=== PATIENT | female | born 1950 | race Caucasian/White ===

== ENCOUNTER 2018-09-01 07:01 | Day surgery (SDC) | payer OTHER ==
[2018-08-29 18:56] VITALS: BMI 29.2
[2018-09-01] MEDS ORDERED: LIDOCAINE HCL 1%, 10 MG/ML (20ML VIAL) ONE ×2 (08:25→10:28)
[2018-09-01] MEDS ORDERED: ISOSULFAN BLUE 10 MG/ML VIAL SQ ONE (08:26)
[2018-09-01] MEDS ORDERED: PROPOFOL 20 ML ONE (10:57)
[2018-09-01] MEDS ORDERED: MIDAZOLAM HCL 2 MG/2 ML SINGLE DOSE VIAL ONE (10:57)
[2018-09-01] MEDS ORDERED: LIDOCAINE HCL/PF 2% SDV 5ML VIAL ONE (11:07)
[2018-09-01] MEDS ORDERED: SODIUM CHLORIDE 0.9% P/F 10 ML VIAL IJ ONE ×2 (11:12→11:23)
[2018-09-01] MEDS ORDERED: ceFAZolin SODIUM 1 GM VIAL ONE (11:12)
[2018-09-01] MEDS ORDERED: ceFAZolin SODIUM 1 GM VIAL IVPB ONE (11:13)
[2018-09-01] MEDS ORDERED: DEXAMETHASONE SOD PHOSPHATE 4 MG/1 ML VIAL ONE (11:15)
[2018-09-01] MEDS ORDERED: ePHEDrine SULFATE 50 MG/1 ML AMPULE ONE (11:22)
[2018-09-01] MEDS ORDERED: LIDOCAINE HCL 1%, 10 MG/ML (20ML VIAL) INF ONE (11:30)
[2018-09-01] MEDS ORDERED: KETOROLAC TROMETHAMINE 30 MG/1 ML VIAL ONE (12:07)
[2018-09-01] MEDS ORDERED: oxyCODONE HCL 5 MG TABLET PO PRN (12:38)
[2018-09-01] MEDS ORDERED: PROMETHAZINE HCL 25 MG/1 ML VIAL IVPUSH PRN (12:38)
[2018-09-01] MEDS ORDERED: ONDANSETRON 4 MG/2 ML VIAL IVPUSH PRN (12:38)
[2018-09-01] MEDS ORDERED: LACTATED RINGERS SOLUTION 1,000 ML IV SCH (12:45)
--- NOTE | 2018-09-01 12:46 | HP ---
History & Physical Update - History History: No Change - Physical Physical: No Change - Assessment Assessment: No Change - Plan Plan: No Change
[2018-09-01 14:42] VITALS: BP 140/84; PULSE 118; TEMP 98.3
--- NOTE | 2018-09-01 21:57 | OP ---
DATE OF OPERATION: 09/01/2018 PREOPERATIVE DIAGNOSIS: Left breast cancer. POSTOPERATIVE DIAGNOSIS: Left breast cancer. PROCEDURE: Left breast ultrasound-guided, wire-localized lumpectomy and sentinel node lymph node biopsy. SURGEON: Stacie Serrano MD ANESTHESIA: General. ESTIMATED BLOOD LOSS: Minimal. COMPLICATIONS: None. This was a sterile procedure. INDICATION FOR PROCEDURE: Patient had a mammogram that noted an area of clustering microcalcifications in the upper outer left breast. This was followed by an ultrasound that noted a hypoechoic area with calcifications in the left breast 2 o'clock location, 12 cm from the nipple. I did a left breast ultrasound-guided needle biopsy, and pathology showed an invasive carcinoma that is ER/ID positive. My recommendation was a lumpectomy and a sentinel node biopsy. The procedure was discussed with her; all of her questions answered. PROCEDURE IN DETAIL: Patient was brought to [facility] and taken into nuclear medicine where I injected technetium labeled sulfur colloid as an intradermal injection in the left breast 2 o'clock periareolar area. She was then brought up to the operating room, and after induction of general anesthesia and IV antibiotics, an intraoperative ultrasound was performed of the left 2 o'clock location, 12 cm from the nipple and the lesion in question identified. Using Betadine, a Kopans wire was used to localize this area by me in the operating room. Once this was localized with a wire, 5 mL of isosulfan blue were injected by me into the left subareolar plexus. The breast was then massaged for 5 minutes. The left breast and axilla then prepped and draped in the usual sterile fashion. A 4-cm incision was made in the left axilla, carried down through the clavipectoral fascia to identify 4 sentinel lymph nodes that were blue and hot in the level I axilla, and there was one more deeper in the level II axilla, that was also blue and hot. These were sent to Pathology for permanent section. Hemostasis was assured with electrocautery. There was no other blue dye radioactivity or pathologic-feeling lymph nodes in the left axilla. Therefore, once this was completed, the left lumpectomy was performed. A radial incision was made in the outer left breast, and a wire was used as a guide to get down to the area of interest. This was excised en bloc and tagged with a long stitch lateral, short stitch superior. I did an ultrasound of the lumpectomy and appeared to have adequate margins. Therefore, this was then sent to Pathology for permanent section. Hemostasis was assured with electrocautery. The parenchyma were approximated with interrupted 2-0 Vicryl, skin approximated with interrupted 3-0 Vicryl and 4-0 Biosyn. A sterile dressing with Tegaderm and 4 x 4's applied. The axillary incision was also closed in routine fashion with interrupted 3-0 Vicryl and running 4-0 Biosyn. A sterile dressing with Tegaderm and 4 x 4's applied. She tolerated the procedure well, was extubated on the operating room table. A mammary binder was applied, and she was taken to Recovery in good condition. Huy [id number]
--- NOTE | 2018-09-05 15:45 | PATH ---
Surgical Pathology Report Patient Name: MISTY AUSTIN [facility]. Rec. #: [id number] /Age/Gender: 1950 (Age: 68) / F Account: [id number] Location: [facility] SURGICAL Taken: 09/01/2018 Received: 09/01/2018 Reported: 09/05/2018 Physicians: Stacie Serrano M.D. Specimen(s) Received A: LEFT AXILLARY SENTINEL LYMPH NODE #1 BLUE AND HOT B: LEFT AXILLARY SENTINEL LYMPH NODE #2 HOT AND BLUE C: LEFT AXILLARY SENTINEL LYMPH NODE #3 HOT AND BLUE D: LEFT AXILLARY SENTINEL LYMPH NODE #4 HOT AND BLUE E: LEFT AXILLARY SENTINEL LYMPH NODE #5 HOT AND BLUE F: LEFT AXILLARY NON SENTINEL LYMPH NODE G: LEFT BREAST MASS Clinical History Left breast cancer Final Diagnosis A. LEFT AXILLARY SENTINEL LYMPH NODE #1, BLUE AND HOT, EXCISION: TWO LYMPH NODES, NEGATIVE FOR METASTATIC CARCINOMA (0/2). B. LEFT AXILLARY SENTINEL LYMPH NODE #2, HOT AND BLUE, EXCISION: ONE LYMPH NODE, NEGATIVE FOR METASTATIC CARCINOMA (0/1). C. LEFT AXILLARY SENTINEL LYMPH NODE #3, HOT AND BLUE, EXCISION: ONE LYMPH NODE, NEGATIVE FOR METASTATIC CARCINOMA (0/1). D. LEFT AXILLARY SENTINEL LYMPH NODE #4, HOT AND BLUE, EXCISION: ONE LYMPH NODE, NEGATIVE FOR METASTATIC CARCINOMA (0/1). E. LEFT AXILLARY SENTINEL LYMPH NODE #5, HOT AND BLUE, EXCISION: ONE LYMPH NODE, NEGATIVE FOR METASTATIC CARCINOMA (0/1). F. LEFT AXILLARY NON SENTINEL LYMPH NODE, EXCISION: BENIGN FIBROADIPOSE TISSUE. NO LYMPH NODES IDENTIFIED. G. LEFT BREAST, LUMPECTOMY: INVASIVE MICROPAPILLARY CARCINOMA WITH MUCINOUS FEATURE, POORLY DIFFERENTIATED (TUBULE SCORE: 3/3, NUCLEAR GRADE 3/3, MITOTIC SCORE: 2/3, TOTAL SCORE 8/9, NOEMI GRADE 3), MEASURING 1.2 CM IN GREATEST DIMENSION, MICROSCOPICALLY. SURGICAL MARGINS ARE UNINVOLVED BY INVASIVE CARCINOMA. THE CARCINOMA IS AT 6 MM FROM THE CLOSEST MARGIN (INFERIOR MARGIN). DUCTAL CARCINOMA IN SITU (DCIS) PRESENT, MODERATE TO HIGH NUCLEAR GRADE, SOLID AND MICROPAPILLARY TYPE, WITH NECROSIS AND ASSOCIATED CALCIFICATIONS. DCIS TO THE CLOSEST MARGIN (INFERIOR MARGIN) IS 2 MM. LYMPHOVASCULAR INVASION NOT IDENTIFIED. REACTIVE CHANGES AT PRIOR BIOPSY SITE IDENTIFIED. PATHOLOGIC STAGE (pTNM): pT1C, pN0 SEE INVASIVE CARCINOMA CASE SUMMARY BELOW. Comments Breast Invasive Carcinoma: Surgical Pathology Case Summary (Based on AJCC TNM 8 th edition) Procedure _x_ Excision (less than total mastectomy) Specimen Laterality _x_ Left Tumor Size _x_ Greatest dimension of largest invasive focus >1 mm (specify exact measurement) (millimeters): 12mm Histologic Type _x_ Invasive micropapillary carcinoma with mucinous feature Histologic Grade (Noemi Histologic Score) Glandular (Acinar)/Tubular Differentiation _x_ Score 3 (<10% of tumor area forming glandular/tubular structures) Nuclear Pleomorphism _x_ Score 3 Mitotic Rate _x_ Score 2 Overall Grade _x_ Grade 3 (scores of 8 or 9) Tumor Focality _x_ Single focus of invasive carcinoma Ductal Carcinoma In Situ (DCIS) _x_ DCIS is present in specimen _x_ Positive for EIC Margins Invasive Carcinoma Margins _x_ Uninvolved by invasive carcinoma Distance from closest margin (millimeters): 6 mm Closest margin: inferior margin DCIS Margins _x_ Uninvolved by DCIS Distance from closest margin (millimeters): 2 mm Closest margin: inferior margin Regional Lymph Nodes Number of Lymph Nodes with Macrometastases (>2 mm): 0 Number of Lymph Nodes with Micrometastases (>0.2 mm to 2 mm and/or >200 cells): 0 Number of Lymph Nodes with Isolated Tumor Cells (=0.2 mm and =200 cells): 0 Number of Lymph Nodes Examined: 6 Number of Marshall Nodes Examined: 6 Treatment Effect _x_ No known presurgical therapy Lymphovascular Invasion _x_ Not identified Pathologic Stage Classification (pTNM, AJCC 8th Edition) Primary Tumor (Invasive Carcinoma) (pT) _x_ pT1c: Tumor >10 mm but =20 mm in greatest dimension Regional Lymph Nodes (pN) Category (pN) _x_ pN0: No regional lymph node metastasis identified or ITCs only Biomarker Studies Results of ER and MD studies performed on this specimen (block#G4) at [facility] are as follows: ER (clone [id number] mouse monoclonal antibody by [employer]): 100% nuclear staining with strong intensity (Positive). MD (clone16 mouse monoclonal antibody by [employer]): 95% nuclear staining with strong intensity (Positive). Results of Her2 (IHC) & Ki-67 studies performed on this specimen (block# G4) at [place], [place] ([id number]) are as follows: Her2 IHC (EP3 from [employer], formerly known as [id number], using Brown Polymer Refine detection kit): Negative (0) Ki67: ~10% (low proliferative index) COMMENT: Immunohistochemical stained slide show DEIDRA stains the cells membranes at the peripheral cells of the tumour clusters, which support the diagnosis of micropapillary carcinoma phenotype. Immunohistochemistry stain DEIDRA performed at [facility], [place], [place] ([id number]) interpreted at [facility]. Positive and negative controls (internal if applicable) show appropriate results. Positive and negative controls (internal if applicable) show appropriate results. Formalin fixation is within, and cold ischemic time exceeds current ASCO/CAP recommendations for ER, MD and Her2 testing. Electronically Signed Elyssa Weber M.D. Gross Description A. Received in formalin labeled "left axillary sentinel lymph node #1," are 2 lymph nodes with attached fat measuring 0.8 and 1.4 cm in greatest dimension. The lymph nodes are bisected and entirely submitted in 2 cassettes as follows: 1-2-one bisected lymph node each. B. Received in formalin labeled "left axillary sentinel node #2," is a 1.0 x 0.7 x 0.5 cm lymph node with attached fat. The specimen is bisected and entirely submitted in one cassette. C. Received in formalin labeled "left axillary sentinel lymph node #3," is a 1.0 x 0.9 x 0.6 cm lymph node with attached fat. The specimen is bisected and entirely submitted in 2 cassettes. D. Received in formalin labeled "left axillary sentinel lymph node #4," is a 0.4 cm in greatest dimension lymph node with attached fat. The specimen is submitted in toto in one cassette. E. Received in formalin labeled "left axillary sentinel lymph node #5," is a 0.6 cm greatest dimension lymph node. The specimen is submitted in toto in one cassette. F. Received in formalin labeled "left axillary non-sentinel lymph node," is a 2.5 x 1.8 x 0.2 cm portion of yellow adipose tissue, possibly containing a lymph node. No definite lymph node is identified. The specimen is submitted in toto in one cassette. G. Received in formalin, labeled "left breast lumpectomy," is a 7.3 x 5.6 x 2.8 cm. hernandez-yellow, irregular, portion of fibroadipose tissue with a needle localization wire present. There is a short suture marking the superior aspect and a long suture marking the lateral aspect, per the surgeon. There is no skin or nipple present. The specimen is inked as follows: Superior blue, inferior green, anterior and lateral red, medial yellow, deep black. The specimen is serially sectioned from anterior to deep. Sectioning reveals a 0.9 x 0.8 x 0.7 cm hernandez, indurated mass focally at 0.6 cm from the inferior margin and 1.0 cm from the superior margin. The mass is 1.2 cm from the lateral margin. [employer] sections are submitted in 10 cassettes as follows: 1-full face section of mass with inferior margin; 2-additional mass with inferior margin; 3-4-mass with superior margin; 5-fibrous tissue surrounding mass with superior and inferior margins; 6-7-lateral margin; 8-medial margin; 9-anterior margin; 10-deep margin. Time to formalin fixation: 2 hours Total formalin fixation time: Approximately 28 hours 09/02/2018 [facility]09/02/2018
== END 2018-09-01 14:45 | disposition home or self-care (01) ==
LOC: JASU-SURG 07:01
PROVIDERS: ATTEND Surgery
PROC: 0HBU0ZZ Excision of Left Breast, Open Approach (ICD-10-PCS; principal; 2018-09-01 10:00)
DX: C50.912 Malignant neoplasm of unspecified site of left female breast (principal)
CPT/HCPCS: 82962; 88305-TC; 88307-TC; 88342-TC; 94760; A9541

== ENCOUNTER 2019-04-27 16:04 | Inpatient (IN) | payer OTHER ==
--- NOTE | 2019-04-27 16:28 | PDOC ---
Rapid Medical Evaluation Chief Complaint: CVA/TIA Time Seen by Provider: 04/27/19 16:20 Medical Evaluation: Allergies Allergy/AdvReac Type Severity Reaction Status Date / Time No Known Allergies Allergy Verified 08/29/18 18:56 04/27/19 16:23 I have performed a brief in-person evaluation of this patient. The patient presents with a chief complaint of: numbness sensation to right side of face, upper extremities and Rt LE since yesterday. H/O uncontrolled HTN and DM. Denies facial drooping. Pertinent physical exam findings: A&O x 3 in NAD. normal facial symmetry. EOMI b /l. 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 5/5 strength to b/l UE. normal sensation to b/l upper extremity. I have ordered the following: nothing The patient will proceed to the ED for further evaluation Discharge Disposition - Diagnosis Numbness - Discharge Dispostion Condition at time of disposition: Stable - Referrals - Patient Instructions - Post Discharge Activity
[2019-04-27 16:30] VITALS: BMI 30.2
[2019-04-27] MEDS: SODIUM CHLORIDE 1,000 ML IV SCH (23:10)
[2019-04-27 23:25] LABS: BASO % 0.3 % (0-2.0); EOS % 2.4 % (0-4.5); HEMOGLOBIN 12.2 GM/dL (10.7-15.3); LYMPH % 29.4 % (8-40); MCH 24.4 pg (25.7-33.7); MCHC 32.1 g/dl (32.0-36.0); MEAN PLT VOLUME 9.5 fl (7.5-11.1); MONO % 9.6 % (3.8-10.2); NEUT % 58.3 % (42.8-82.8); PLATELET COUNT 109 K/MM3 (134-434); RDW 17.8 % (11.6-15.6); WHITE BLOOD COUNT 5.8 K/mm3 (4.0-10.0)
[2019-04-27 23:32] LABS: INR 1.18 (0.83-1.09)
--- NOTE | 2019-04-27 23:43 | PDOC ---
History of Present Illness - General Chief Complaint: CVA/TIA Stated Complaint: RT SIDE NUMBNESS Time Seen by Provider: 04/27/19 16:20 History Source: Patient Exam Limitations: No Limitations - History of Present Illness Initial Comments: 04/27/19 22:46 69 yo F with a hx of HTN, DM, HDL, blindness secondary to glaucoma, asthma, and left breast cancer s/p resection and radiation presents to the emergency department with numbness on the right side of the face, UE, and LE. Per the patient, she had sudden onset of facial weakness with numbness with associative numbness and weakness on her right LE and UE that began yesterday at 3 pm. She did not tell her family of the symptoms until today where she presented to urgent care. The patient has had multiple episodes of hypoglycemia in the past month. Per the patient, she states her symptoms have markedly improved 04/27/19 22:48 tPA Exclusion Checklist 0-3hr - Time Elapsed Date last known well: 04/26/19 Time last known well: 15:00 Elaspsed time: 4 Day(s) and 2 Hour(s) and 58 Minutes - Thrombolytic Therapy Candidate Is the patient eligible for Thrombolytic Therapy?: No - Exclusion Criteria 0-3hr SBP greater than 185 or DBP greater than 110mmHg despite tx: No Recent IC/spinal surgery,head trauma or stroke w/in last 3mo: No Hx of previous IC hemorrhage, IC neoplasm, AVM or aneurysm: No Active internal bleeding: No Blding diathesis(low plt ct, inc PTT,INR>1.7 or use of NOAC): No Symptoms suggest subarachnoid hemorrhage: No CT demonstrates multilobar infarct(>1/3 cerebral hemiphere): No Arterial puncture at noncompressible site in previous 7 days: No Blood glucose concentration less than 50mg/dL (2.7mmol/L): No - Relative Exclusion Criteria 0-3h Life expectancy <1yr/severe co-morbid illness/ASSOCIATE STORE DIRECTOR on admit: No : No Patient/family refused: No Rapid improvement: Yes Stroke severity too mild: Yes Recent acute NM (w/in previous 3 months): No Seizure at onset with postictal residual neuro impairments: No Major surgery or serious trauma w/in previous 14 days: No Recent GI or hemorrhage (w/in previous 21 days): No - Ineligibility reason(s) Reasons No tPA given: See reason(s) noted above NIH Stroke Scale - Last Known Well Date/Time & Onset Date Last Known Well: 04/26/19 Time Last Known Well: 15:00 - Initial Evaluation Level of consciousness: Alert Ask patient the month and their age: Answers both correctly Ask patient to open & close eyes; make fist and let go: Obeys both correctly Best gaze (horizontal eye movement): Normal (100% blindness bilaterally chronic) Visual field testing: No visual field loss (unable to assess given patient's blindness) Facial paresis (Show teeth/raise eyebrows/close eyes tight): Normal symmetrical movement Motor Function: Left Arm: Normal Motor Function: Right Arm: Normal (extends arm 90 (or 45) degrees for 10 seconds without drift Motor Function: Left Leg: Normal (extends leg 30 degrees for 5 seconds without drift) Motor Function: Right Leg: Normal (extends leg 30 degrees for 5 seconds without drift) Limb Ataxia: No ataxia Sensory(Use pinprick test arms,legs,trunk,face/side to side): Normal Best language (Describe picture, name items, read sentences): No Aphasia Dysarthria (read several words): Mild to moderate slurring of words Extinction and Inattention: No abnormality - Total Score NIH Stroke Scale Score: 1 Past History - Past Medical History Allergies/Adverse Reactions: Allergies Allergy/AdvReac Type Severity Reaction Status Date / Time No Known Allergies Allergy Verified 04/27/19 16:23 Home Medications: Ambulatory Orders Cyanocobalamin [Vitamin B12 -] 1,000 mcg PO DAILY 08/29/18 Multivitamin [Daily Multiple Vitamin] 1 each PO DAILY 08/29/18 metFORMIN HCL [Metformin HCl] 500 mg PO BID 08/29/18 Aspirin 81 mg PO DAILY 04/28/19 Chlorthalidone 25 mg PO DAILY 04/28/19 Linagliptin [Tradjenta] 5 mg PO DAILY 04/28/19 Rosuvastatin Calcium [Crestor] 40 mg PO DAILY 04/28/19 Exemestane [Aromasin] 25 mg PO DAILY 04/29/19 Ezetimibe [Zetia -] 10 mg PO DAILY #30 tablet 04/29/19 Losartan Potassium [Cozaar -] 50 mg PO DAILY tablet 04/29/19 Metoprolol Succinate [Toprol XL -] 100 mg PO DAILY tab.sr.24h 04/29/19 Asthma: Yes COPD: No Diabetes: Yes HTN: Yes Other medical history: blind - Suicide/Smoking/Psychosocial Hx Smoking History: Unknown if ever smoked Hx Alcohol Use: No Drug/Substance Use Hx: No Substance Use Type: None Review of Systems - Review of Systems Able to Perform ROS?: Yes Is the patient limited Croatian proficient: No Constitutional: Yes: Weakness. No: Chills, Diaphoresis, Fever, Night Sweats HEENTM: No: Eye Pain, Ear Pain, Nose Pain, Throat Pain, Mouth Pain Respiratory: No: Cough, Shortness of Breath, Hemoptysis Cardiac (ROS): No: Chest Pain ABD/GI: No: Constipated, Diarrhea, Nausea, Rectal Bleeding, Vomiting, Tarry Stools : No: Burning, Dysuria, Incontinence Musculoskeletal: No: Back Pain Integumentary: No: Bruising, Erythema, Rash Neurological: No: Headache, Tingling, Ataxia Psychiatric: No: Stressors Endocrine: No: Unexplained Weight Gain Hematologic/Lymphatic: No: Anemia *Physical Exam - Vital Signs Last Vital Signs Temp Pulse Resp BP Pulse Ox 98.5 F 70 17 147/75 98 04/27/19 16:26 04/27/19 16:26 04/27/19 16:26 04/27/19 16:26 04/27/19 16:26 - Physical Exam General Appearance: Yes: Nourished, Appropriately Dressed. No: Apparent Distress, Intoxicated HEENT: positive: Symmetrical, TMs Normal, Pharynx Normal, Hearing Grossly Normal. negative: EOMI (chronic bilateral blindness), MIRIAN, Normal Voice ( dysarthric), Pale Conjunctivae, Scleral Icterus (R), Scleral Icterus (L), Pharyngeal Erythema, Tonsillar Exudate, Excessive drooling Neck: positive: Trachea midline, Supple. negative: Tender, Lymphadenopathy (R) , Lymphadenopathy (L), Tender lateral, Tender midline Respiratory/Chest: positive: Lungs Clear, Normal Breath Sounds. negative: Chest Tender, Respiratory Distress, Accessory Muscle Use, Crackles, Rales, Rhonchi, Stridor Cardiovascular: positive: Regular Rhythm, Regular Rate, S1, S2. negative: Systolic Murmur Gastrointestinal/Abdominal: positive: Normal Bowel Sounds, Flat, Soft. negative : Tender, Distended, Guarding, Rebound Lymphatic: negative: Adenopathy Musculoskeletal: positive: Normal Inspection. negative: CVA Tenderness Extremity: positive: Normal Capillary Refill, Normal Inspection, Normal Range of Motion. negative: Tender Integumentary: positive: Normal Color, Dry, Warm Neurologic: positive: Fully Oriented, Alert, Normal Mood/Affect, Normal Response , Motor Strength 5/5. negative: flash designer II-XII NML intact (unable to assess EOMI and vision), Numbness, Sensory Deficit ED Treatment Course - LABORATORY CBC & Chemistry Diagram: 04/29/19 06:00 04/29/19 06:00 - RADIOLOGY Radiology Studies Ordered: Category Date Time Status CHEST PA & LAT [RAD] Stat Radiology 04/27/19 20:37 Ordered Medical Decision Making - Medical Decision Making 04/28/19 00:03 69 yo F with a hx of HTN, DM, HDL, blindness secondary to glaucoma, asthma, and left breast cancer s/p resection and radiation presents to the emergency department with numbness on the right side of the face, UE, and LE. Initial vitals: Initial Vital Signs Temp Pulse Resp BP Pulse Ox 98.5 F 70 17 147/75 98 04/27/19 16:26 04/27/19 16:26 04/27/19 16:26 04/27/19 16:26 04/27/19 16:26 Work up: patient presents to the emergency department with improved symptoms of weakness and sensation loss of the right side. Denies hx of CVA. concerns for tia vs cva. will order cva work up. will order ct head and EKG Laboratory Tests 04/27/19 04/27/19 04/27/19 23:00 23:00 23:00 WBC 5.8 RBC 5.00 Hgb 12.2 Hct 38.0 MCV 76.0 L MCH 24.4 L MCHC 32.1 RDW 17.8 H Plt Count 109 L MPV 9.5 Absolute Neuts (auto) 3.4 Neutrophils % 58.3 Lymphocytes % 29.4 Monocytes % 9.6 Eosinophils % 2.4 Basophils % 0.3 Nucleated RBC % 0 PT with INR INR Sodium 141 Potassium 3.9 Chloride 106 Carbon Dioxide 28 Anion Gap 7 L BUN 19.8 H Creatinine 0.9 Est GFR (CKD-EPI)AfAm 74.56 Est GFR (CKD-EPI)NonAf 64.33 Random Glucose 126 H Calcium 8.8 Total Bilirubin 0.5 AST 16 ALT 17 Alkaline Phosphatase 91 Creatine Kinase 50 Troponin I < 0.02 Total Protein 7.8 Albumin 3.6 Triglycerides 118 Cholesterol 131 Total LDL Cholesterol 82 HDL Cholesterol 37 L 04/27/19 23:00 WBC RBC Hgb Hct MCV MCH MCHC RDW Plt Count MPV Absolute Neuts (auto) Neutrophils % Lymphocytes % Monocytes % Eosinophils % Basophils % Nucleated RBC % PT with INR 14.00 H INR 1.18 H Sodium Potassium Chloride Carbon Dioxide Anion Gap BUN Creatinine Est GFR (CKD-EPI)AfAm Est GFR (CKD-EPI)NonAf Random Glucose Calcium Total Bilirubin AST ALT Alkaline Phosphatase Creatine Kinase Troponin I Total Protein Albumin Triglycerides Cholesterol Total LDL Cholesterol HDL Cholesterol no irregular rhythm noted on EKG. CT head shows no acute process. spoke to neurology implementation project coordinator which requests for admission and MRI in the morning. the patient has been pain free throughout ED stay. will admit for cva vs tia. Dispo; Admit *DC/Admit/Observation/Transfer Diagnosis at time of Disposition: Numbness - Referrals - Patient Instructions - Post Discharge Activity
[2019-04-27 23:47] LABS: ALBUMIN 3.6 g/dl (3.4-5.0); BILIRUBIN,TOTAL 0.5 mg/dL (0.2-1); BLOOD UREA NITROGEN 19.8 mg/dL (7-18); CALCIUM 8.8 mg/dL (8.5-10.1); CREATININE 0.9 mg/dL (0.55-1.3); POTASSIUM 3.9 mmol/L (3.5-5.1); TOT PROT 7.8 g/dl (6.4-8.2)
[2019-04-27] MEDS ORDERED: ASPIRIN 81 MG CHEWABLE TABLETS PO ONE (23:50)
--- NOTE | 2019-04-28 00:27 | PDOC ---
Documentation entered by Janki Uriostegui SCRIBE, acting as scribe for Tata Aguilar MD. Tata Aguilar MD: This documentation has been prepared by the Gila mortensen Xhesika, SCRIBE, under my direction and personally reviewed by me in its entirety. I confirm that the documentation accurately reflects all work, treatment, procedures, and medical decision making performed by me. Attending Attestation - Resident Resident Name: Wesley Mcclure - ED Attending Attestation I have performed the following: I have examined & evaluated the patient, The case was reviewed & discussed with the resident, I agree w/resident's findings & plan, Exceptions are as noted - HPI HPI: 04/27/19 21:02 The patient is a 69 year old female with a significant medical history of HTN, DM, HLD, b/l blindness due to glaucoma, asthma, vertigo, L breast cancer who present to the ED with R sided facial numbness with associated RUE and RLE numbness since yesterday. The patient went to urgent care and was advised to come to the ED. The patient denies facial drooping, speech impairment, headache or dizziness. The patient denies chest pain, shortness of breath, headache and dizziness. Denies fever, chills, nausea, vomit, diarrhea and constipation. Denies dysuria, frequency, urgency and hematuria. Allergies: NKA - Physicial Exam PE: 04/28/19 00:22 wnwd 69 yo female who is blind eyes opaque pupils head ncat,no scalp lacerations neck no midline pain lungs cta b/l cvs [id number] abd no rebound ,no guarding skin warm and dry extremities no deformities neuro alert and conversant,motor strength 5/5, b/l, no decreased sensation - Medical Decision Making 04/27/19 23:09 69 yo female has experienced weakness and numbness since yesterday. She is blind in both eyes due to glaucoma. PMH HTN,DM,asthma Today she felt better and went to an urgent care center and she was referred to the ED ROS denies any headache,nausea,vomiting,chest pain,shortness of breath, abdominal pain no gross focal neuro deficits at this time 04/28/19 00:25 ct scan head no acute intracrainal pathology imp TIA pt admitted to hospitalist
[2019-04-28] MEDS ORDERED: ASPIRIN 81 MG CHEWABLE TABLETS ONE (00:43)
--- NOTE | 2019-04-28 00:51 | HP ---
CHIEF COMPLAINT: Right sided numbness PCP: HISTORY OF PRESENT ILLNESS: Ms. Mccollum is a 69 yo female with HTN, HLD, DM, and breast cancer who presents with intermittent R sided paresthesias that began 2 days ago. She denies any history of previous episodes of numbness or stroke. She says the numbness is on her face, and upper and lower extremities. Two days ago the symptoms began and almost completely resolved yesterday morning. She reports residual numbness in her arm and on her forehead. She denies any recent illness, fever, chills, chest pain, dizziness, nausea, or vomiting. 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 Pt diagnosed with breast cancer 08/2018. Began Aromasin 10/2018. NIHSS 1 ER course was notable for: (1) ASA (2) EKG (3) CT head PAST MEDICAL HISTORY: 1. HTN 2. HLD 3. DM 4. L breast cancer ER+ diagnosed 08/2018 PAST SURGICAL HISTORY: breast cancer biopsy Social History: Smoking: no Alcohol: no Drugs: no Lives with family Family History: no hx of stroke or TIA Allergies No Known Allergies Allergy (Verified 04/27/19 16:23) HOME MEDICATIONS: Home Medications Medication Instructions Recorded Albuterol Sulfate [Proventil HFA 1 - 2 inh PO PRN 08/29/18 Inhaler -] Atorvastatin Ca [Lipitor] 40 mg PO HS 08/29/18 Calcium Carbonate/Vitamin D3 1 each PO DAILY 08/29/18 [Calcium 500 + Vit D Caplet] Cyanocobalamin [Vitamin B12 -] 1,000 mcg PO DAILY 08/29/18 Glimepiride [Amaryl -] 4 mg PO DAILY@0700 08/29/18 Losartan Potassium [Cozaar] 50 mg PO DAILY 08/29/18 Montelukast Sodium [Singulair] 10 mg PO HS 08/29/18 Multivitamin [Daily Multiple 1 each PO DAILY 08/29/18 Vitamin] metFORMIN HCL [Metformin HCl] 500 mg PO BID 08/29/18 Exemestane [Aromasin] 25 mg PO DAILY 04/27/19 Metoprolol Succinate [Toprol Xl] 100 mg PO DAILY 04/27/19 REVIEW OF SYSTEMS CONSTITUTIONAL: Absent: fever, chills, diaphoresis, generalized weakness, malaise, loss of appetite, weight change HEENT: Absent: rhinorrhea, nasal congestion, difficulty swallowing, CARDIOVASCULAR: Absent: chest pain, syncope, palpitations, lightheadedness, peripheral edema RESPIRATORY: Absent: cough, shortness of breath, dyspnea with exertion, orthopnea, wheezing GASTROINTESTINAL: Absent: abdominal pain, nausea, vomiting, diarrhea DYSURIA: Absent: dysuria MUSCULOSKELETAL: Absent: myalgia, arthralgia, joint swelling, back pain, neck pain SKIN: Absent: rash, itching, pallor HEMATOLOGIC/IMMUNOLOGIC: Absent: easy bleeding, easy bruising, lymphadenopathy, frequent infections ENDOCRINE: Absent: unexplained weight gain, unexplained weight loss, heat intolerance, cold intolerance NEUROLOGIC: Present: numbness Absent: headache, dizziness, unsteady gait, seizure, mental status changes, bladder or bowel incontinence PSYCHIATRIC: Absent: anxiety, depression, suicidal or homicidal ideation, hallucinations. PHYSICAL EXAMINATION Vital Signs - 24 hr 04/27/19 16:26 Temperature 98.5 F Pulse Rate 70 Respiratory 17 Rate Blood Pressure 147/75 O2 Sat by Pulse 98 Oximetry (%) GENERAL: Awake, alert, and fully oriented, in no acute distress. HEAD: Normal with no signs of trauma. EYES: R side clouded lens, unable to assess vision due to blindness. No lid lag. EARS, NOSE, THROAT: Ears normal, nares patent, oropharynx clear without exudates. Moist mucous membranes. NECK: Normal range of motion, supple without lymphadenopathy, JVD, or masses. LUNGS: Expiratory wheezing bilaterally. No accessory muscle use. HEART: Regular rate and rhythm, normal S1 and S2 without murmur, rub or gallop. ABDOMEN: Soft, nontender, not distended, normoactive bowel sounds, no guarding, no rebound, no masses. No hepatomegaly or splenomegaly. MUSCULOSKELETAL: Normal range of motion at all joints. No bony deformities or tenderness. UPPER EXTREMITIES: 2+ pulses, warm, well-perfused. No cyanosis. No clubbing. No peripheral edema. LOWER EXTREMITIES: 2+ pulses, warm, well-perfused. No calf tenderness. No peripheral edema. NEUROLOGICAL: Cranial nerves II-XII intact. Normal speech. Normal gait. PSYCHIATRIC: Cooperative. Appropriate mood and affect. SKIN: Warm, dry, normal turgor, no rashes or lesions noted, normal capillary refill. Laboratory Results - last 24 hr 04/27/19 04/27/19 04/27/19 23:00 23:00 23:00 WBC 5.8 RBC 5.00 Hgb 12.2 Hct 38.0 MCV 76.0 L MCH 24.4 L MCHC 32.1 RDW 17.8 H Plt Count 109 L MPV 9.5 Absolute Neuts (auto) 3.4 Neutrophils % 58.3 Lymphocytes % 29.4 Monocytes % 9.6 Eosinophils % 2.4 Basophils % 0.3 Nucleated RBC % 0 PT with INR INR Sodium 141 Potassium 3.9 Chloride 106 Carbon Dioxide 28 Anion Gap 7 L BUN 19.8 H Creatinine 0.9 Est GFR (CKD-EPI)AfAm 74.56 Est GFR (CKD-EPI)NonAf 64.33 Random Glucose 126 H Calcium 8.8 Total Bilirubin 0.5 AST 16 ALT 17 Alkaline Phosphatase 91 Creatine Kinase 50 Troponin I < 0.02 Total Protein 7.8 Albumin 3.6 Triglycerides 118 Cholesterol 131 Total LDL Cholesterol 82 HDL Cholesterol 37 L 04/27/19 23:00 WBC RBC Hgb Hct MCV MCH MCHC RDW Plt Count MPV Absolute Neuts (auto) Neutrophils % Lymphocytes % Monocytes % Eosinophils % Basophils % Nucleated RBC % PT with INR 14.00 H INR 1.18 H Sodium Potassium Chloride Carbon Dioxide Anion Gap BUN Creatinine Est GFR (CKD-EPI)AfAm Est GFR (CKD-EPI)NonAf Random Glucose Calcium Total Bilirubin AST ALT Alkaline Phosphatase Creatine Kinase Troponin I Total Protein Albumin Triglycerides Cholesterol Total LDL Cholesterol HDL Cholesterol ASSESSMENT/PLAN: The pt is a 69 yo female with HTN, HLD, DM, and breast cancer who presents with intermittent paresthesias on the right side almost fully resolved within 24 hours. She reports some residual numbness at her forehead and upper arm. There is no previous history of stroke or TIA. Given her HTN and HLD, she is at risk of these, however. NIHSS at presentation is 1. CT head showed no ICH or infarct. It did show an acute and/or chronic retinal detachments bilaterally and was suggested to get ophthalmology consult at some point. EKG showed NSR, HR 68, no increased intervals, and no ST changes. She began Aromasin in October 2018, after breast cancer diagnosis. Per Upto[employer] 3% paresthesia side effect. 1. CVA vs Aromasin side effect vs other causes -MRI -MRA -carotid doppler study -echo -CXR -CBC -CMP -Mg -TSH -HbA1C -RPR -B12 -if workup is negative, consider notifying oncology paresthesias poss 2/2 Aromasin -ASA 81mg Q daily -atorvastatin 40mg-appreciate neuro input to increase to 80mg -neuro checks -consult neuro -consult speech -consult PT 2. DM BG 126. Pt on metformin and glimepiride at home. Will start insulin. -SSI -HbA1C 3. HTN Mild hypertension systolic, 147/75. Continue home meds. -Toprol 100mg Q daily -losartan 50mg Q daily 4. HLD LDL 82, total cholesterol 131, HDL 37. Given comorbidities, pt should have LDL 70 or less. Pt is currently on atorvastatin 40mg. -consider increase to 80mg, appreciate neuro input 5. asthma pt is denying any symptoms but wheezes were heard bilaterally. O2 98% RA. -albuterol PRN -Singulair 10mg Q daily 6. mild thrombocytopenia PLT 109. pt is not having active bleeding on exam. Repeat CBC. -CBC DVT prophylaxis SCDs FEN on NS, can consider d/c monitor electrolytes, BUN elevated diabetic diet Visit type - Emergency Visit Emergency Visit: Yes ED Registration Date: 04/28/19 Care time: The patient presented to the Emergency Department on the above date and was hospitalized for further evaluation of their emergent condition. - New Patient This patient is new to me today: Yes Date on this admission: 04/28/19 - Critical Care Critical Care patient: No ATTENDING PHYSICIAN STATEMENT I saw and evaluated the patient. I reviewed the resident's note and discussed the case with the resident. I agree with the resident's findings and plan as documented. SUBJECTIVE: OBJECTIVE: ASSESSMENT AND PLAN:
[2019-04-28] MEDS ORDERED: ALBUTEROL SO4 8 GM HFA INHALER IH SCH (01:00)
[2019-04-28 02:09] LABS: ALBUMIN 3.3 g/dl (3.4-5.0); BILIRUBIN,TOTAL 0.5 mg/dL (0.2-1); BLOOD UREA NITROGEN 19.2 mg/dL (7-18); CALCIUM 8.6 mg/dL (8.5-10.1); CREATININE 0.9 mg/dL (0.55-1.3); MAGNESIUM 2.2 mg/dL (1.8-2.4); POTASSIUM 3.9 mmol/L (3.5-5.1)
[2019-04-28] MEDS: INSULIN SLIDING SCALE (NOVOLOG) 1 VIAL SQ SCH ×4 (06:38→21:51)
--- NOTE | 2019-04-28 06:59 | PN ---
Teaching Attending Note Name of Resident: Fay Li ATTENDING PHYSICIAN STATEMENT I saw and evaluated the patient. I reviewed the resident's note and discussed the case with the resident. I agree with the resident's findings and plan as documented. Seen and examined; history of retinal detachment with no change in baseline issues (seen on CT) with full R-sided weakness, numbness, parasthesias on half of body persisting in forehead and arm with the parasthesia sx. She is on anastrazole for ER+ breast cancer which has a side effect of parasthesias; first time this happened and it has been going on outside tPA range. Rest of history per tax intern note. She has known retinal detatchment and this is seen on CT; it recommends optho consultation. As this is a known finding, discussed at length with CT and will admit here and can see nonurgently 2/2 calls as this chronic issue isnt her acute issue. VS, labs, imaging reviewed NAD, AAO, resting comfortably in bed RRR s1/2 no mgr Negative orthostatics Lungs CTAB, w/ sym exp Some parasthesias but sensation to fine touch still intact CT head negative for acute bleed EKG reviewed; no major changes from prior studies Echo pending, carotid dopplers pending, MRI pending ASSESSMENT AND PLAN: Patient presents with presyncope and fall; CT head negative, atraumatic. Hemodynamics stable, more parasthesia than numbness which is a 3% side effect of anastrazole. Pending neuro workup. 1) CVA vs. parasthesias 2) Hx Breast Cancer on aromatase inhibitor s/p chemo/rad (10/2018 start date drug ) 3) HTN 4) HLD 5) Hx Anxiety Placing on medicine on telemetry, followup neuro consult Dr. Corbin. MRI, echo, tele, carotids pending. Neuro checks and seizure precautions. Checking B12, TSH, RPR. PT/ST consult. ASA 81; ASCVD score to be obtained and antilipid agent adjusted. Discuss risk factor reduction. Can discuss with her oncologist likelihood of anastrazole induced neuropathy. Has seen Dr. Atkins in the past so would recommend followup with him as OP unless underlying arrhythmia noted. Appreciate neuro input. Full Code
[2019-04-28 08:13] LABS: BASO % 0.2 % (0-2.0); EOS % 3.1 % (0-4.5); HEMOGLOBIN 11.1 GM/dL (10.7-15.3); MCH 24.7 pg (25.7-33.7); MCHC 32.5 g/dl (32.0-36.0); MEAN CELL VOLUME 75.9 fl (80-96); MEAN PLT VOLUME 9.3 fl (7.5-11.1); MONO % 9.7 % (3.8-10.2); RBC 4.49 M/mm3 (3.60-5.2); WHITE BLOOD COUNT 4.8 K/mm3 (4.0-10.0)
[2019-04-28 08:44] LABS: BLOOD UREA NITROGEN 19.1 mg/dL (7-18); CALCIUM 8.4 mg/dL (8.5-10.1); CREATININE 0.8 mg/dL (0.55-1.3); MAGNESIUM 2.1 mg/dL (1.8-2.4); POTASSIUM 3.7 mmol/L (3.5-5.1)
[2019-04-28] MEDS ORDERED: ALBUTEROL SO4 8 GM HFA INHALER IH PRN (09:11)
[2019-04-28 09:47] LABS: PLATELET COUNT 102 K/MM3 (134-434)
[2019-04-28] MEDS ORDERED: MULTIVITAMINS (DAILY MVI) TABLET (FP) PO SCH (10:00)
[2019-04-28] MEDS ORDERED: LOSARTAN POTASSIUM 50 MG TABLET (FP) PO SCH (10:00)
[2019-04-28] MEDS ORDERED: EXEMESTANE 25 MG TABLET PO SCH (10:00)
[2019-04-28] MEDS: SODIUM CHLORIDE 1,000 ML IV SCH ×2 (12:31→21:51)
[2019-04-28] MEDS: ENOXAPARIN NA (PORCINE) 40 MG/0.4 ML DISP.SYRIN SQ SCH (12:31)
[2019-04-28] MEDS: LOSARTAN POTASSIUM 50 MG TABLET (FP) PO SCH (12:31)
[2019-04-28] MEDS: ASPIRIN COATED 81 MG TABLET.EC PO SCH (12:31)
--- NOTE | 2019-04-28 12:47 | CONSULT ---
Admitting History and Physical - Admission History of Present Illness: Per EMR- Ms. Mccollum is a 69 yo female with HTN, HLD, DM, and breast cancer who presents with intermittent R sided paresthesias that began 2 days ago. She denies any history of previous episodes of numbness or stroke. She says the numbness is on her face, and upper and lower extremities. Two days ago the symptoms began and almost completely resolved yesterday morning. She reports residual numbness in her arm and on her forehead. She denies any recent illness, fever, chills, chest pain, dizziness, nausea, or vomiting. 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 Pt diagnosed with breast cancer 08/2018. Began Aromasin 10/2018. Selected Entries 04/28/19 04/28/19 06:05 09:30 Temperature 98.7 F 98.6 F Laboratory Tests 04/28/19 07:46 WBC 4.8 History Source: Patient Limitations to Obtaining History: No Limitations, Language Barrier - Smoking History Smoking history: Unknown if ever smoked - Alcohol/Substance Use Hx Alcohol Use: No History - Admission Reason For Visit: TRANSIENT ISCHEMIC ATTACK - Diagnostics X-ray: Report Reviewed CT Scan: Report Reviewed MRI: Report Reviewed (acute Left Thalamic infarct) - General Mental Status: Alert and Oriented, Awake and Alert, Able to Follow Commands Attention: Intact Ability to Follow Directions: Excellent Head/Neck Control: WFL - Hearing Hearing: Functional Speech Evaluation - Communication Primary Language: [place] Communication: Yes: Within Normal Limits, Language Barrier Oral Expression Ability: Yes: No Impairment - Speech Production Able to Make Needs Known: Yes: WNL Intelligibility: Yes: WNL - Speech Characteristics Voice Loudness: Normal Voice Pitch: Yes: Normal Voice Phonatory-based Quality: Yes: Normal Speech Pattern: Normal Speech Clarity: < 100% Nasal Resonance: Normal Articulation: Yes: Precise - Language/Auditory Comprehension Follows: Yes: 2 Stage Simple Commands - Language/Verbal Expression Able to Respond to Simple Queries: Yes: WNL Able to Communicate Wants and Needs: Yes: WNL Functional Communication Status: Yes: WNL - 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: WNL Short Term Memory: Yes: WNL - Swallow Evaluation/Bedside Assessment Current Nutritional Intake: Regular, Thin Liquids Oral Secretions: Yes: WFL Dentition: Yes: Adequate Facial Symmetry at Rest: Symmetrical Facial Symmetry on Retraction: Symmetrical Facial Movement: Controlled Against Resistance Opening: Normal Against Resistance Closing: Normal Pucker Lips: Normal Smile: Normal Lingual Movement: Normal, Symmetric Lingual Speed of Movement: Normal Lingual Movement Strgth Against Opposition: Normal Lingual Movement Characteristics: Normal Velopharyngeal Movement: Normal Laryngeal Elevation: WFL Laryngeal Movement: Able to Palpate Rate of Intake: WFL Bolus Size: WFL Labial Seal: WFL Chewing: WFL Oral Prep Time: WFL A-P Transit: WFL Pocketing: None Timing of Swallow: WFL Coughing/Throat Clear: No Change in Voice: No Recommendations - Speech Evaluation, Impression/Plan Impression: Gren[place] speaking. speech, language, cognition and swallowing intact. Visually impaired at baseline - Dysphagia Impressions/Plan Swallowing Skills: WF Dysphagia Impressions: No Impairment *Silent aspiration: cannot be R/O at bedside - Recommendations Diet Consistency: Regular Medication Administration: Whole with water Liquids: Thin Liquids
--- NOTE | 2019-04-28 12:54 | ECHO ---
Version: 1 Name: MISTY AUSTIN Exam: Adult Echocardiogram Study Date: 04/28/2019, 8:19 AM Age: 69 Years MMode/2D Measurements & Calculations IVSd: 1.54 cm LVIDs: 2.30 cm LVIDd: 3.8 cm LVPWd: 1.03 cm LAV (MOD-bp): 32.1 ml LVOT diam: 1.98 cm Ao root diam: 2.09 cm Doppler Measurements & Calculations MV E max santino: 75.2 cm/sec Med E/e': 13.3 MV A max santino: 83.4 cm/sec Med Peak E' Santino: 5.7 cm/sec MV E/A: 0.90 Lat E/e': 10.3 Lat Peak E' Santino: 7.3 cm/sec Ao max P.7 mmHg Ao V2 max: 129.0 cm/sec Procedure The study was technically limited with all images being suboptimal in quality. Left Ventricle The left ventricular size, thickness and function are normal. Ejection Fraction = 55%. Right Ventricle The right ventricle is not well visualized. Atria Normal left and right atrial size and function. Mitral Valve The mitral valve is normal in structure and function. There is no mitral regurgitation noted. Tricuspid Valve The tricuspid valve is normal in structure and function. Aortic Valve The aortic valve is not well visualized. No hemodynamically significant valvular aortic stenosis. Pulmonic Valve The pulmonic valve is not well visualized. Great Vessels The aortic root is not well visualized. Pericardium/Pleura There is no pericardial effusion. Summary Statements The study was technically limited with all images being suboptimal in quality. The left ventricular size, thickness and function are normal Rafi Ramirez 04/28/2019, 11:53 AM Ordering Physician: LAURENCE FULLER Performed By: Vicki Sahu
--- NOTE | 2019-04-28 14:42 | EKG ---
Test Reason : Blood Pressure : / mmHG Vent. Rate : 068 BPM Atrial Rate : 068 BPM P-R Int : 170 ms QRS Dur : 070 ms QT Int : 402 ms P-R-T Axes : 014 -04 015 degrees QTc Int : 427 ms NORMAL SINUS RHYTHM LOW VOLTAGE QRS BORDERLINE ECG NO PREVIOUS ECGS AVAILABLE Confirmed by Armani Huffman MD ([id number]) on 04/28/2019 2:42:20 PM Referred By: Confirmed By:Armani Huffman MD
--- NOTE | 2019-04-28 15:27 | PN ---
Teaching Attending Note Name of Resident: Coty Bobo ATTENDING PHYSICIAN STATEMENT I saw and evaluated the patient. I reviewed the resident's note and discussed the case with the resident. I agree with the resident's findings and plan as documented. SUBJECTIVE: R arm and R forehead numbness , no weakness, no dysphagea OBJECTIVE: NAD Cv : RRR Lungs: CTAB Ext: varicose veins on both legs and L thigh Neuro: EOMI. white R pupil and iris , deformed L pupil. no facial droop , tongue at mid line . strength 5/5 in upper and lower extremities proximally and distally. sensation to light touch decreased over R hand, arm, and upper arm, and R sided forehead. reflexes 2+ biceps and knee jerk b/l. ASSESSMENT AND PLAN: 69 y/o lady with h/o breast cancer s/p Lumpectomy, hormonal therapy, HTN, HLP, anxiety, DM, who presented with R sided numbness ( forehead and RUE) . she was found ot have acute lacunar thalamic stroke 1- Acute lacunar L thalamic stroke. MRI reviewed. MRA with abnormal circulation , might or might not be contributing to the stroke. - will d/w neuro - tele monitoring - neuro checks - LDL not at goal. cont crestor 40 and add zetia - cont ASa - speech eval pending Recs - echo - CUS, head Ct reviewed. 2- CT scan finding of abnormal ocular densities suspicious for retinal detachments. patient is blind , had extensive h/o bleeding and clotting in her eyes. - f/u as out pt 3- H/o HTN: out of the window for permissive HTN. will need tight control of BP. - cont metoprolol and Losartan - resume chlorthalidone 4- h/o breast cancer: - will confirm if she is on hormonal therapy. 5- reported h/o recent clot in L leg. US neg 6- Low normal B12. - check MMA to r/o B12 def dispo : HLOC
--- NOTE | 2019-04-28 16:34 | CON.NEURO ---
Consult - Alcohol/Substance Use Hx Alcohol Use: No - Smoking History Smoking history: Unknown if ever smoked Home Medications - Allergies Allergies/Adverse Reactions: Allergies Allergy/AdvReac Type Severity Reaction Status Date / Time No Known Allergies Allergy Verified 04/27/19 16:23 - Home Medications Home Medications: Ambulatory Orders Albuterol Sulfate [Proventil HFA Inhaler -] 1 - 2 inh PO PRN 08/29/18 Atorvastatin Ca [Lipitor] 40 mg PO HS 08/29/18 Calcium Carbonate/Vitamin D3 [Calcium 500 + Vit D Caplet] 1 each PO DAILY Cyanocobalamin [Vitamin B12 -] 1,000 mcg PO DAILY 08/29/18 Glimepiride [Amaryl -] 4 mg PO DAILY@0700 08/29/18 Losartan Potassium [Cozaar] 50 mg PO DAILY 08/29/18 Montelukast Sodium [Singulair] 10 mg PO HS 08/29/18 Multivitamin [Daily Multiple Vitamin] 1 each PO DAILY 08/29/18 metFORMIN HCL [Metformin HCl] 500 mg PO BID 08/29/18 Exemestane [Aromasin] 25 mg PO DAILY 04/27/19 Metoprolol Succinate [Toprol Xl] 100 mg PO DAILY 04/27/19 Aspirin 81 mg PO DAILY 04/28/19 Chlorthalidone 25 mg PO DAILY 04/28/19 Linagliptin [Tradjenta] 5 mg PO DAILY 04/28/19 Rosuvastatin Calcium [Crestor] 40 mg PO DAILY 04/28/19 Physical Exam-Neuro Vital Signs: Vital Signs Temperature 98.3 F 04/28/19 15:20 Pulse Rate 77 04/28/19 15:20 Respiratory Rate 20 04/28/19 09:30 Blood Pressure 183/94 H 04/28/19 15:20 O2 Sat by Pulse Oximetry (%) 99 04/28/19 15:20 Labs: CBC, BMP 04/28/19 07:46 04/28/19 07:46 INR, PTT INR 1.18 (0.83-1.09) H 04/27/19 23:00 Assessment/Plan CC Right sided numbness of face, arm and leg HPI 69 year old female , blind due to glaucoma, DM,HTN,HLD , Breast cancer. She is having right arm, face and leg numbness. Patient found to have left thalamic infarct. Patient also feel right arm is weak and she is having difficulty with picking up spoon. She denies any other focal neurological syptoms. PAST MEDICAL HISTORY: 1. HTN 2. HLD 3. DM 4. L breast cancer ER+ diagnosed 08/2018 PAST SURGICAL HISTORY: breast cancer biopsy Social History: Smoking: no Alcohol: no Drugs: no Lives with family Family History: no hx of stroke or TIA Allergies No Known Allergies Allergy (Verified 04/27/19 16:23) HOME MEDICATIONS: Home Medications Medication Instructions Recorded Albuterol Sulfate [Proventil HFA 1 - 2 inh PO PRN 08/29/18 Inhaler -] Atorvastatin Ca [Lipitor] 40 mg PO HS 08/29/18 Calcium Carbonate/Vitamin D3 1 each PO DAILY 08/29/18 [Calcium 500 + Vit D Caplet] Cyanocobalamin [Vitamin B12 -] 1,000 mcg PO DAILY 08/29/18 Glimepiride [Amaryl -] 4 mg PO DAILY@0700 08/29/18 Losartan Potassium [Cozaar] 50 mg PO DAILY 08/29/18 Montelukast Sodium [Singulair] 10 mg PO HS 08/29/18 Multivitamin [Daily Multiple 1 each PO DAILY 08/29/18 Vitamin] metFORMIN HCL [Metformin HCl] 500 mg PO BID 08/29/18 Exemestane [Aromasin] 25 mg PO DAILY 04/27/19 Metoprolol Succinate [Toprol Xl] 100 mg PO DAILY 04/27/19 FH,ROS reviewed in chart NEUROLOGICAL EXAMINATION Alert oriented x 3 CN all intact, there is diminished sensation on right side of face no pronator drift there is diminished senation on right arm and leg ct unremarkable mri of brain sowed left thalamic stroke mra is unremarkable carotid ultrasound unremarkable Assessment/Plan Left thalamic stroke , risk factor DM,HTN, HLD , NIH score is 0 and able to swallow, she was not on aspirin and low dose statin at home Plan: work up has been negative, continue apsirin and statin - speech consult appreciated - PT - Work up has been negative Patient is being admitted , would continue to follow with primary Thanking you so much Rashid Ruvalcaba MD
--- NOTE | 2019-04-28 17:46 | PN ---
Physical Exam: SUBJECTIVE: Patient seen and examined at bedside. Daughter translated for me. Patient feeling fine. OBJECTIVE: Vital Signs Period Temp Pulse Resp BP Sys/Jung Pulse Ox Last 24 Hr 98.3 F-98.7 F 68-77 20-20 137-183/68-94 97-99 GENERAL: The patient is blind 2/2 glaucoma, sitting in bed comfortably. EYES: retinal detachments. NECK: full range of motion, supple. LUNGS: Breath sounds equal, clear to auscultation bilaterally, no wheezes, no crackles, no accessory muscle use. HEART: Regular rate and rhythm, S1, S2 without murmur, rub or gallop. ABDOMEN: Soft, nontender, nondistended, normoactive bowel sounds, no guarding, no rebound. EXTREMITIES: extensive varicose veins, well-perfused, no edema. NEUROLOGICAL: Cranial nerves II through XII grossly intact. Negative romberg test, decreased sensation on V1 distribution of rt face and in rt arm. Normal speech, gait slight favor of left side observed. Laboratory Results - last 24 hr 04/27/19 04/27/19 04/27/19 23:00 23:00 23:00 WBC 5.8 RBC 5.00 Hgb 12.2 Hct 38.0 MCV 76.0 L MCH 24.4 L MCHC 32.1 RDW 17.8 H Plt Count 109 L MPV 9.5 Absolute Neuts (auto) 3.4 Neutrophils % 58.3 Lymphocytes % 29.4 Monocytes % 9.6 Eosinophils % 2.4 Basophils % 0.3 Nucleated RBC % 0 PT with INR INR Sodium 141 Potassium 3.9 Chloride 106 Carbon Dioxide 28 Anion Gap 7 L BUN 19.8 H Creatinine 0.9 Est GFR (CKD-EPI)AfAm 74.56 Est GFR (CKD-EPI)NonAf 64.33 POC Glucometer Random Glucose 126 H Calcium 8.8 Magnesium Total Bilirubin 0.5 AST 16 ALT 17 Alkaline Phosphatase 91 Creatine Kinase 50 Troponin I < 0.02 Total Protein 7.8 Albumin 3.6 Triglycerides 118 Cholesterol 131 Total LDL Cholesterol 82 HDL Cholesterol 37 L Vitamin B12 RPR Titer Blood Type Antibody Screen 04/27/19 04/28/19 04/28/19 23:00 01:29 01:29 WBC RBC Hgb Hct MCV MCH MCHC RDW Plt Count MPV Absolute Neuts (auto) Neutrophils % Lymphocytes % Monocytes % Eosinophils % Basophils % Nucleated RBC % PT with INR 14.00 H INR 1.18 H Sodium 142 Potassium 3.9 Chloride 107 Carbon Dioxide 26 Anion Gap 8 BUN 19.2 H Creatinine 0.9 Est GFR (CKD-EPI)AfAm 74.56 Est GFR (CKD-EPI)NonAf 64.33 POC Glucometer Random Glucose 114 H Calcium 8.6 Magnesium 2.2 Total Bilirubin 0.5 AST 18 ALT 16 Alkaline Phosphatase 82 Creatine Kinase Troponin I Total Protein 7.0 Albumin 3.3 L Triglycerides Cholesterol Total LDL Cholesterol HDL Cholesterol Vitamin B12 RPR Titer Blood Type A POSITIVE Antibody Screen Negative 04/28/19 04/28/19 04/28/19 06:26 07:46 07:46 WBC 4.8 RBC 4.49 Hgb 11.1 Hct 34.0 MCV 75.9 L MCH 24.7 L MCHC 32.5 RDW 18.0 H Plt Count 102 L MPV 9.3 Absolute Neuts (auto) 2.5 Neutrophils % 53.0 Lymphocytes % 34.0 Monocytes % 9.7 Eosinophils % 3.1 Basophils % 0.2 Nucleated RBC % 0 PT with INR INR Sodium 140 Potassium 3.7 Chloride 109 H Carbon Dioxide 25 Anion Gap 6 L BUN 19.1 H Creatinine 0.8 Est GFR (CKD-EPI)AfAm 85.97 Est GFR (CKD-EPI)NonAf 74.17 POC Glucometer 105 Random Glucose 111 H Calcium 8.4 L Magnesium 2.1 Total Bilirubin AST ALT Alkaline Phosphatase Creatine Kinase Troponin I Total Protein Albumin Triglycerides Cholesterol Total LDL Cholesterol HDL Cholesterol Vitamin B12 RPR Titer Blood Type Antibody Screen 04/28/19 04/28/19 04/28/19 12:00 12:00 12:00 WBC RBC Hgb Hct MCV MCH MCHC RDW Plt Count MPV Absolute Neuts (auto) Neutrophils % Lymphocytes % Monocytes % Eosinophils % Basophils % Nucleated RBC % PT with INR INR Sodium Potassium Chloride Carbon Dioxide Anion Gap BUN Creatinine Est GFR (CKD-EPI)AfAm Est GFR (CKD-EPI)NonAf POC Glucometer Random Glucose Calcium Magnesium Total Bilirubin AST ALT Alkaline Phosphatase Creatine Kinase Troponin I Total Protein Albumin Triglycerides Cholesterol Total LDL Cholesterol HDL Cholesterol Vitamin B12 252 RPR Titer Nonreactive Blood Type A POSITIVE Antibody Screen 04/28/19 04/28/19 12:26 16:26 WBC RBC Hgb Hct MCV MCH MCHC RDW Plt Count MPV Absolute Neuts (auto) Neutrophils % Lymphocytes % Monocytes % Eosinophils % Basophils % Nucleated RBC % PT with INR INR Sodium Potassium Chloride Carbon Dioxide Anion Gap BUN Creatinine Est GFR (CKD-EPI)AfAm Est GFR (CKD-EPI)NonAf POC Glucometer 151 170 Random Glucose Calcium Magnesium Total Bilirubin AST ALT Alkaline Phosphatase Creatine Kinase Troponin I Total Protein Albumin Triglycerides Cholesterol Total LDL Cholesterol HDL Cholesterol Vitamin B12 RPR Titer Blood Type Antibody Screen Active Medications Generic Name Dose Route Start Last Admin Trade Name Freq PRN Reason Stop Dose Admin Albuterol Sulfate 2 puff 04/28/19 09:11 Ventolin Hfa Inhaler - IH Q4H PRN SHORT OF BREATH/WHEEZING Aspirin 81 mg 04/28/19 10:00 04/28/19 12:31 Ecotrin - PO 81 mg DAILY ALIYA Administration Atorvastatin Calcium 40 mg 04/28/19 22:00 Lipitor - PO HS ALIYA Chlorthalidone 25 mg 04/29/19 10:00 Hygroton - PO DAILY ALIYA Ezetimibe 10 mg 04/29/19 10:00 Zetia - PO DAILY ALIYA Enoxaparin Sodium 40 mg 04/28/19 10:00 04/28/19 12:31 Lovenox - SQ 40 mg DAILY ALIYA Administration Exemestane 25 mg 04/29/19 10:00 Aromasin - PO DAILY ALIYA Sodium Chloride 1,000 mls @ 42 mls/hr 04/27/19 20:45 04/28/19 12:31 Normal Saline - IV 42 mls/hr ASDIR ALIYA Administration Insulin Aspart 1 vial 04/28/19 07:00 04/28/19 12:32 Novolog Vial Sliding Scale - SQ 2 units ACHS ALIYA Administration Protocol Losartan Potassium 50 mg 04/28/19 10:00 04/28/19 12:31 Cozaar - PO 50 mg DAILY ALIYA Administration Metoprolol Succinate 100 mg 04/28/19 10:00 04/28/19 12:31 Toprol Xl - PO 100 mg DAILY ALIYA Administration Montelukast Sodium 10 mg 04/28/19 22:00 Singulair - PO HS [facility] ASSESSMENT/PLAN: Images: MRA- unremarkable patent major arterial vessels of [place]. 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 Rt posterior communicating arteries not seen on image. no aneurysm, vasc malformation, flow seen in rt superior cerebellar artery. MRI- nonhemmorhagic acute left lateral thalamic lacunar infarct with restrictive diffusion, corresponding low signal intensity on the ADC is noted measuring 10mm X 35mm in vascular territory on penetrating branches of left [employer]. Carotid- ,ild atherosclerotic w no evidence of hemodynamic instability. Duplex b/l: negative for dvt 69 y/o lady with h/o breast cancer s/p Lumpectomy, hormonal therapy, HTN, HLP, anxiety, DM, who presented with R sided numbness (forehead and RUE) . she was found to have acute lacunar thalamic stroke on MRI. #Acute lacunar L thalamic stroke - will d/w neuro in regards to continuing ASA and statin or adding plavix as well, bc pt endorses to taking ASA regularly at home. - tele monitoring - neuro checks - LDL not at goal <70. cont crestor 40 and add zetia - speech eval put on regular diet. - echo pending. - Carotid US, head Ct negative. # CT scan showed ? retinal detachments - pt has extensive h/o bleeding and clots in eyes - f/u as out pt - tried to retrieve records regarding patient ocular status. # H/o HTN: - will need tight control of BP. - cont metoprolol and Losartan - resume chlorthalidone # h/o breast cancer: - will confirm if she is on hormonal therapy. # Low normal B12 (256). - check MMA to r/o B12 def FEN -42 cc/hr NS - monitor lytes - regular diet DVT PPX: lovenox 40SQ Dispo- had pts pcp fax over the records of patient for her retinal detachments and images. will check tm am for fax. Visit type - Emergency Visit Emergency Visit: Yes ED Registration Date: 04/28/19 Care time: The patient presented to the Emergency Department on the above date and was hospitalized for further evaluation of their emergent condition. - New Patient This patient is new to me today: Yes Date on this admission: 04/28/19 - Critical Care Critical Care patient: No - Discharge Referral Referred to [facility] No ATTENDING PHYSICIAN STATEMENT I saw and evaluated the patient. I reviewed the resident's note and discussed the case with the resident. I agree with the resident's findings and plan as documented. SUBJECTIVE: OBJECTIVE: ASSESSMENT AND PLAN:
[2019-04-28] MEDS ORDERED: PT OWN MED DRAWER 7, Y5N ONE (19:06)
[2019-04-28] MEDS ORDERED: MONTELUKAST NA 10 MG TABLET PO SCH ×2 (22:00)
[2019-04-28] MEDS ORDERED: ATORVASTATIN CA 40 MG TABLET (FP) PO SCH ×2 (22:00)
[2019-04-29 06:39] LABS: CALCIUM 8.4 mg/dL (8.5-10.1); POTASSIUM 3.8 mmol/L (3.5-5.1)
[2019-04-29 06:40] LABS: BASO % 0.1 % (0-2.0); EOS % 3.3 % (0-4.5); HEMATOCRIT 36.1 % (32.4-45.2); HEMOGLOBIN 11.5 GM/dL (10.7-15.3); LYMPH % 34.9 % (8-40); MCH 24.4 pg (25.7-33.7); MCHC 31.8 g/dl (32.0-36.0); MEAN CELL VOLUME 76.7 fl (80-96); MEAN PLT VOLUME 9.7 fl (7.5-11.1); MONO % 11.5 % (3.8-10.2); NEUT % 50.2 % (42.8-82.8); PLATELET COUNT 100 K/MM3 (134-434); RDW 17.7 % (11.6-15.6); WHITE BLOOD COUNT 5.9 K/mm3 (4.0-10.0)
[2019-04-29] MEDS: INSULIN SLIDING SCALE (NOVOLOG) 1 VIAL SQ SCH ×2 (06:56→12:33)
[2019-04-29] MEDS: SODIUM CHLORIDE 1,000 ML IV SCH (08:47)
--- NOTE | 2019-04-29 09:16 | PN ---
Teaching Attending Note Name of Resident: Albert Talavera ATTENDING PHYSICIAN STATEMENT I saw and evaluated the patient. I reviewed the resident's note and discussed the case with the resident. I agree with the resident's findings and plan as documented. SUBJECTIVE: Patient is feeling well, no acute events overnight. No shortness of breath. Daughter at bedside. OBJECTIVE: Vital Signs Temperature 98.5 F 04/29/19 02:00 Pulse Rate 63 04/29/19 02:00 Respiratory Rate 20 04/29/19 02:00 Blood Pressure 127/73 04/29/19 02:00 O2 Sat by Pulse Oximetry (%) 97 04/28/19 21:00 GENERAL: The patient is awake, alert, and oriented, in no acute distress. HEAD: Normal with no signs of trauma. EYES: PERRL, extraocular movements intact, sclera anicteric, conjunctiva clear. ENT: Ears normal, oropharynx clear without exudates, moist mucous membranes. NECK: Trachea midline, full range of motion, supple. LUNGS: Breath sounds equal, clear to auscultation bilaterally, no wheezes, no crackles, no accessory muscle use. HEART: Regular rate and rhythm, S1, S2 positive, JOSE 2/6 , no rub or gallop. ABDOMEN: Soft, nontender, nondistended, normoactive bowel sounds, no guarding, no rebound, no hepatosplenomegaly, no masses. EXTREMITIES: 2+ pulses, warm, well-perfused, no edema. NEUROLOGICAL: Cranial nerves II through XII grossly intact. Normal speech, gait not observed. PSYCH: Normal mood, normal affect. SKIN: Warm, dry, normal turgor, no rashes or lesions noted CBCD WBC 5.9 K/mm3 (4.0-10.0) 04/29/19 06:00 RBC 4.70 M/mm3 (3.60-5.2) 04/29/19 06:00 Hgb 11.5 GM/dL (10.7-15.3) 04/29/19 06:00 Hct 36.1 % (32.4-45.2) 04/29/19 06:00 MCV 76.7 fl (80-96) L 04/29/19 06:00 MCHC 31.8 g/dl (32.0-36.0) L 04/29/19 06:00 RDW 17.7 % (11.6-15.6) H 04/29/19 06:00 Plt Count 100 K/MM3 (134-434) L 04/29/19 06:00 MPV 9.7 fl (7.5-11.1) 04/29/19 06:00 CMP Sodium 141 mmol/L (136-145) 04/29/19 06:00 Potassium 3.8 mmol/L (3.5-5.1) 04/29/19 06:00 Chloride 110 mmol/L (98-107) H 04/29/19 06:00 Carbon Dioxide 26 mmol/L (21-32) 04/29/19 06:00 Anion Gap 5 MMOL/L (8-16) L 04/29/19 06:00 BUN 18.2 mg/dL (7-18) H 04/29/19 06:00 Creatinine 1.0 mg/dL (0.55-1.3) 04/29/19 06:00 Random Glucose 126 mg/dL (74-106) H 04/29/19 06:00 Calcium 8.4 mg/dL (8.5-10.1) L 04/29/19 06:00 Total Bilirubin 0.3 mg/dL (0.2-1) 04/29/19 06:00 AST 17 U/L (15-37) 04/29/19 06:00 ALT 18 U/L (13-61) 04/29/19 06:00 Alkaline Phosphatase 76 U/L (45-117) 04/29/19 06:00 Total Protein 6.7 g/dl (6.4-8.2) 04/29/19 06:00 Albumin 3.1 g/dl (3.4-5.0) L 04/29/19 06:00 CARDIAC ENZYMES Creatine Kinase 50 U/L (26-192) 04/27/19 23:00 Troponin I < 0.02 ng/ml (0.00-0.05) 04/27/19 23:00 Current Medications Generic Name Dose Route Start Last Admin Trade Name Freq PRN Reason Stop Dose Admin Albuterol Sulfate 2 puff 04/28/19 09:11 Ventolin Hfa Inhaler - IH Q4H PRN SHORT OF BREATH/WHEEZING Aspirin 81 mg 04/28/19 10:00 04/28/19 12:31 Ecotrin - PO 81 mg DAILY ALIYA Administration Atorvastatin Calcium 40 mg 04/28/19 22:00 04/28/19 21:52 Lipitor - PO 40 mg HS ALIYA Administration Chlorthalidone 25 mg 04/29/19 10:00 [place] - PO DAILY ALIYA Ezetimibe 10 mg 04/29/19 10:00 Zetia - PO DAILY ALIYA Enoxaparin Sodium 40 mg 04/28/19 10:00 04/28/19 12:31 Lovenox - SQ 40 mg DAILY ALIYA Administration Exemestane 25 mg 04/29/19 10:00 Aromasin - PO DAILY ALIYA Sodium Chloride 1,000 mls @ 42 mls/hr 04/27/19 20:45 04/29/19 08:47 Normal Saline - IV 42 mls/hr ASDIR ALIYA Administration Insulin Aspart 1 vial 04/28/19 07:00 04/29/19 06:56 Novolog Vial Sliding Scale - SQ Not Given ACHS ALIYA Protocol Losartan Potassium 50 mg 04/28/19 10:00 04/28/19 12:31 Cozaar - PO 50 mg DAILY ALIYA Administration Metoprolol Succinate 100 mg 04/28/19 10:00 04/28/19 12:31 Toprol Xl - PO 100 mg DAILY ALIYA Administration Montelukast Sodium 10 mg 04/28/19 22:00 04/28/19 21:52 Singulair - PO 10 mg HS ALIYA Administration Home Medications Medication Instructions Recorded Calcium Carbonate/Vitamin D3 1 each PO DAILY 08/29/18 [Calcium 500 + Vit D Caplet] Cyanocobalamin [Vitamin B12 -] 1,000 mcg PO DAILY 08/29/18 Losartan Potassium [Cozaar] 50 mg PO DAILY 08/29/18 Multivitamin [Daily Multiple 1 each PO DAILY 08/29/18 Vitamin] metFORMIN HCL [Metformin HCl] 500 mg PO BID 08/29/18 Metoprolol Succinate [Toprol Xl] 100 mg PO DAILY 04/27/19 Aspirin 81 mg PO DAILY 04/28/19 Chlorthalidone 25 mg PO DAILY 04/28/19 Linagliptin [Tradjenta] 5 mg PO DAILY 04/28/19 Rosuvastatin Calcium [Crestor] 40 mg PO DAILY 04/28/19 ASSESSMENT AND PLAN: Patient is a 69yo female with PMhx of breast cancer s/p Lumpectomy, hormonal therapy, HTN, HLP, anxiety, DM, who presented with R sided numbness ( forehead and RUE) . she was found to have acute lacunar thalamic stroke. # Acute lacunar Left thalamic stroke. MRI and MRA reviewed. 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 will discharge the patient on aspirin and crestor and zetia. # CT scan finding of abnormal ocular densities suspicious for retinal detachments. patient is blind , had extensive h/o bleeding and clotting in her eyes. - f/u as out pt # H/o HTN: cont metoprolol and Losartan and chlorthalidone # h/o breast cancer: follow up with oncology for further care # Hx of reported recent clot in L leg. US neg # Low to normal B12: on B12 supplement, continue since patient is on Metformin discharge patient home.
[2019-04-29] MEDS ORDERED: EZETIMIBE 10 MG TABLET (FP) PO SCH (10:00)
[2019-04-29] MEDS ORDERED: EXEMESTANE 25 MG TABLET PO SCH (10:00)
[2019-04-29] MEDS ORDERED: CHLORTHALIDONE 25 MG TABLET PO SCH (10:00)
[2019-04-29] MEDS ORDERED: PT OWN MED DRAWER 7, Y5N ONE (10:35)
[2019-04-29] MEDS: ENOXAPARIN NA (PORCINE) 40 MG/0.4 ML DISP.SYRIN SQ SCH (10:38)
[2019-04-29] MEDS: LOSARTAN POTASSIUM 50 MG TABLET (FP) PO SCH (10:38)
[2019-04-29] MEDS: ASPIRIN COATED 81 MG TABLET.EC PO SCH (10:38)
[2019-04-29 11:23] LABS: ALBUMIN 3.2 g/dl (3.4-5.0); BILIRUBIN,TOTAL 0.4 mg/dL (0.2-1); BLOOD UREA NITROGEN 19.2 mg/dL (7-18); TOT PROT 6.9 g/dl (6.4-8.2)
[2019-04-29] MEDS ORDERED: BENZOCAINE/MENTH/CETYLPYRD CL 1 EACH LOZENGE MM PRN (13:14)
--- NOTE | 2019-04-29 14:22 | PN ---
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 Pt doing well with reg diet/thin liquids. Speech/Swallow/Language/cognition intact. No further f/u indicated
--- NOTE | 2019-04-29 15:14 | DS ---
Physical Exam: SUBJECTIVE: Patient seen and examined at the bedside. No acute events overnight. OBJECTIVE: Vital Signs Period Temp Pulse Resp BP Sys/Jung Pulse Ox Last 24 Hr 97.6 F-98.5 F 63-77 19-20 127-183/68-95 97-99 PHYSICAL EXAM GENERAL: The patient is awake, alert, and fully oriented, in no acute distress. EYES: pt is blind, retinal detachments. NECK: supple. LUNGS: Breath sounds equal, clear to auscultation bilaterally, no wheezes, no crackles, no accessory muscle use. HEART: Regular rate and rhythm, S1, S2 without murmur, rub or gallop. ABDOMEN: Soft, nontender, nondistended, normoactive bowel sounds, no guarding, no rebound, no hepatosplenomegaly, no masses. EXTREMITIES: 2+ pulses, warm, well-perfused, no edema. NEUROLOGICAL: Cranial nerves II through XII grossly intact. Normal speech, gait improved, some decreased sensation in her rt forearm and rt upper forehead other than that no other neuro abnormalities. PSYCH: Normal mood, normal affect. SKIN: Warm, dry, no rashes or lesions noted. LABS Laboratory Results - last 24 hr 04/28/19 04/28/19 04/28/19 12:00 16:26 18:37 WBC RBC Hgb Hct MCV MCH MCHC RDW Plt Count MPV Absolute Neuts (auto) Neutrophils % Lymphocytes % Monocytes % Eosinophils % Basophils % Nucleated RBC % Sodium Potassium Chloride Carbon Dioxide Anion Gap BUN Creatinine Est GFR (CKD-EPI)AfAm Est GFR (CKD-EPI)NonAf POC Glucometer 170 163 Random Glucose Hemoglobin A1c % Calcium Total Bilirubin AST ALT Alkaline Phosphatase Total Protein Albumin TSH RPR Titer Nonreactive 04/28/19 04/29/19 04/29/19 21:38 05:42 06:00 WBC RBC Hgb Hct MCV MCH MCHC RDW Plt Count MPV Absolute Neuts (auto) Neutrophils % Lymphocytes % Monocytes % Eosinophils % Basophils % Nucleated RBC % Sodium 142 Potassium 3.8 Chloride 109 H Carbon Dioxide 20 L Anion Gap 13 BUN 19.2 H Creatinine 1.0 Est GFR (CKD-EPI)AfAm 65.64 Est GFR (CKD-EPI)NonAf 56.64 POC Glucometer 147 110 Random Glucose 120 H Hemoglobin A1c % Calcium 8.4 L Total Bilirubin 0.4 AST 21 ALT 16 Alkaline Phosphatase 81 Total Protein 6.9 Albumin 3.2 L TSH 1.88 RPR Titer 04/29/19 04/29/19 04/29/19 06:00 06:00 06:00 WBC 5.9 RBC 4.70 Hgb 11.5 Hct 36.1 MCV 76.7 L MCH 24.4 L MCHC 31.8 L RDW 17.7 H Plt Count 100 L MPV 9.7 Absolute Neuts (auto) 2.9 Neutrophils % 50.2 Lymphocytes % 34.9 Monocytes % 11.5 H Eosinophils % 3.3 Basophils % 0.1 Nucleated RBC % 0 Sodium Potassium Chloride Carbon Dioxide Anion Gap BUN Creatinine Est GFR (CKD-EPI)AfAm Est GFR (CKD-EPI)NonAf POC Glucometer Random Glucose Hemoglobin A1c % 7.3 H Calcium Total Bilirubin AST ALT Alkaline Phosphatase Total Protein Albumin TSH RPR Titer Nonreactive 04/29/19 12:28 WBC RBC Hgb Hct MCV MCH MCHC RDW Plt Count MPV Absolute Neuts (auto) Neutrophils % Lymphocytes % Monocytes % Eosinophils % Basophils % Nucleated RBC % Sodium Potassium Chloride Carbon Dioxide Anion Gap BUN Creatinine Est GFR (CKD-EPI)AfAm Est GFR (CKD-EPI)NonAf POC Glucometer 165 Random Glucose Hemoglobin A1c % Calcium Total Bilirubin AST ALT Alkaline Phosphatase Total Protein Albumin TSH RPR Titer HOSPITAL COURSE: Date of Admission:04/28/19 This is a 69 y/o blind F (2/2 glaucoma) with a PMH of DM, HTN, and breast cancer on hormonal therapy who was admitted for a TIA. While the patient was here we did an MRI, MRA, carotid dopplers, and b/l duplex US and the results are listed below. An abnormality was noted on the MRI. We resumed her ASA 81 mg to prevent reoccurrence of TIA and started her on zetia 10mg daily in order to optimize her medical treatment. Discussed with patient the importance of her following up with neurology. Images: MRA- unremarkable patent major arterial vessels of [place]. 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 Rt posterior communicating arteries not seen on image. no aneurysm, vasc malformation, flow seen in rt superior cerebellar artery. MRI- nonhemmorhagic acute left lateral thalamic lacunar infarct with restrictive diffusion, corresponding low signal intensity on the ADC is noted measuring 10mm X 35mm in vascular territory on penetrating branches of left [employer]CHING [employer]. Carotid- ILD atherosclerotic w no evidence of hemodynamic instability. Duplex b/l: negative for dvt Date of Discharge: 04/29/19 Minutes to complete discharge: 35 Discharge Summary Reason For Visit: TRANSIENT ISCHEMIC ATTACK Condition: Stable - Instructions Diet, Activity, Other Instructions: You were admitted for having decreased sensation in your right arm and upper right side of your face. While you were here we did some imaging of your brain ( MRI/MRA) and it showed that you had a small stroke. You do not need to be in the hospital for this, it will just be important to take your medications to prevent any more strokes. We did an ultrasound of your neck artery and of your legs and they were both normal as well. We had a neurologist evaluate you while you were here and recommended you resume taking your aspirin. We also found your cholesterol to be slightly elevated so we added another cholesterol medication, called Zetia. Also we would like you to have low fat diet and low carbohydrate diet. For your stroke in your brain we have adjusted your treatment while you were here to as follows: - We put you back on your aspirin 81 mg by mouth daily. For your elevated cholesterol: continue taking your crestor with Zetia 10mg by mouth daily. Please continue to take all your other medications as prescribed. Please follow up with your primary care physician in 1 week. Please follow up with your neurologist in 3-4 days. Please return to the emergency room if you have any worsening of your symptoms, chest pain, shortness of breath, fevers, or weakness. Referrals: Rashid Ruvalcaba MD [Staff Physician] - 1 Week Disposition: HOME - Home Medications Comprehensive Discharge Medication List: Ambulatory Orders Calcium Carbonate/Vitamin D3 [Calcium 500 + Vit D Caplet] 1 each PO DAILY Cyanocobalamin [Vitamin B12 -] 1,000 mcg PO DAILY 08/29/18 Multivitamin [Daily Multiple Vitamin] 1 each PO DAILY 08/29/18 metFORMIN HCL [Metformin HCl] 500 mg PO BID 08/29/18 Aspirin 81 mg PO DAILY 04/28/19 Chlorthalidone 25 mg PO DAILY 04/28/19 Linagliptin [Tradjenta] 5 mg PO DAILY 04/28/19 Rosuvastatin Calcium [Crestor] 40 mg PO DAILY 04/28/19 Exemestane [Aromasin] 25 mg PO DAILY 04/29/19 Ezetimibe [Zetia -] 10 mg PO DAILY #30 tablet 04/29/19 Losartan Potassium [Cozaar -] 50 mg PO DAILY tablet 04/29/19 Metoprolol Succinate [Toprol XL -] 100 mg PO DAILY tab.sr.24h 04/29/19 This patient is new to me today: No Emergency Visit: Yes ED Registration Date: 04/28/19 Care time: The patient presented to the Emergency Department on the above date and was hospitalized for further evaluation of their emergent condition. Critical Care patient: No - Discharge Referral Referred to [facility] No ATTENDING PHYSICIAN STATEMENT I saw and evaluated the patient. I reviewed the resident's note and discussed the case with the resident. I agree with the resident's findings and plan as documented. SUBJECTIVE: OBJECTIVE: ASSESSMENT AND PLAN:
[2019-04-29 15:30] VITALS: BP 128/75; PULSE 66; TEMP 98.2
[2019-04-30 08:06] LABS: SERUM IRON SATURATION 14 % (15-55); TOTAL IRON BINDING CAPACITY 371 ug/dL (250-450)
[2019-05-01 15:07] LABS: METHYLMALONIC ACID- 347 nmol/L (0-378)
== END 2019-04-29 16:24 | disposition home or self-care (01) | DRG 65 ==
LOC: JER 16:04 → JERBED 04-28 00:13 → J4W 04-28 18:02
PROVIDERS: ADMIT Internal Medicine; ATTEND Internal Medicine
DX: I63.9 Cerebral infarction, unspecified (principal); H33.20 Serous retinal detachment, unspecified eye; I10 Essential (primary) hypertension; E11.9 Type 2 diabetes mellitus without complications; E78.5 Hyperlipidemia, unspecified; H54.7 Unspecified visual loss; H40.9 Unspecified glaucoma; J45.909 Unspecified asthma, uncomplicated; Z79.84 Long term (current) use of oral hypoglycemic drugs; D69.6 Thrombocytopenia, unspecified; F41.9 Anxiety disorder, unspecified; Z92.21 Personal history of antineoplastic chemotherapy; Z85.3 Personal history of malignant neoplasm of breast
CPT/HCPCS: 36415; 70450-TC; 70544-TC; 70551-TC; 71046-TC-FY; 80048; 80053; 82465; 82550; 82607; 82728; 82962; 83036; 83540; 83550; 83718; 83721; 83735; 83921; 84443; 84478; 84484; 85025; 85610; 86593; 86850; 86900; 86901; 93005; 93010; 93306-TC; 93880-TC; 93970-TC; 97116-GP; 97162-GP; 99285-25; J7030